=== PATIENT | male | born 1975 | race Caucasian/White ===

== ENCOUNTER → 2024-07-05 18:14 | Outpatient (REF) | payer BC, SELFPAY | LOC: RAD 18:14 | PROVIDERS: ATTENDING PHYSICIAN Family Medicine | DX: G89.29 Other chronic pain (principal); M25.511 Pain in right shoulder; M54.50 Low back pain, unspecified; M25.551 Pain in right hip | CPT/HCPCS: 72110; 73030; 73502 ==